=== PATIENT | male | born 2000 | race Two or more races ===

== ENCOUNTER 2021-12-05 10:09 | Emergency (ER) | payer MEDICAID, OTHER ==
[~2021-12-05] VITALS: Ht 175.3 cm; Wt 81.6 kg
[2021-12-05 11:40] VITALS: BP 139/86
[2021-12-05] MEDS ORDERED: ACETAMINOPHEN/CODEINE#3 (300/30mg) TAB PO ONE (12:00)
[2021-12-05] MEDS ORDERED: ONDANSETRON ODT 4 MG TAB PO ONE (12:00)
[2021-12-05] MEDS ORDERED: IBUP800T27 PO (12:09)
[2021-12-05] MEDS ORDERED: CYCL-837 PO (12:09)
== END 2021-12-05 12:24 | disposition home or self-care (01) ==
LOC: ER 10:09
DX: S00.83XA Contusion of other part of head, initial encounter (principal); S70.01XA Contusion of right hip, initial encounter; S80.212A Abrasion, left knee, initial encounter; V86.56XA Driver of dirt bike or motor/cross bike injured in nontraffic accident, initial encounter; Y93.89 Activity, other specified; Y92.89 Other specified places as the place of occurrence of the external cause; Y99.8 Other external cause status
CPT/HCPCS: 70450; 70486; 72125; 72192; 73562; 99284; Q0162